=== PATIENT | female | born 1995 | race Caucasian/White ===

== ENCOUNTER 2017-03-23 18:04 | Emergency (ER) | payer SELFPAY ==
[~2017-03-23] VITALS: Ht 134.6 cm; Wt 65.0 kg
[~2017-03-23 18:04] MED LIST: ONDANSETRON HCL 4 MG/2 ML VIAL IV PUSH ONE
[2017-03-23 18:05] VITALS: BP 166/100; PULSE 118; RESP 20; TEMP 98.3; O2SAT 97
[2017-03-23 18:17] VITALS: BP 148/91; PULSE 105; RESP 18; O2SAT 99
--- NOTE | 2017-03-23 18:19 | PD ---
Physical Exam Date Seen by Provider: Mar 23, 2017 Time Seen by Provider: 18:17 Narrative 21 yo female here for possible food stuck on the throat. Feels like she cant swallow. Ate turkey. Not improving with water. Nothing helps. Some chest pain with cough. Vitals are stable in triage. Awaiting bed placement. Data Data Last Documented VS Vital Signs Date Time Temp Pulse Resp B/P Pulse Ox O2 Delivery O2 Flow Rate FiO2 03/23/17 18:05 98.3 118 20 166/100 97 Room Air [facility] Medical Record Reviewed: Yes Supervised Visit with JOAO: Genaro Stout Mar 23, 2017 18:19
[2017-03-23] MEDS ORDERED: GLUCAGON 1 MG/ML VIAL IV PUSH ONE (19:15)
[2017-03-23 19:37] LABS: AUTOMATED NEUTROPHIL # 6.9 TH/MM3 (1.8-7.7); BASOPHIL % 0.3 % (0.0-2.0); EOSINOPHIL # 0.3 TH/MM3 (0-0.4); HEMATOCRIT 45.3 % (35.0-46.0); HEMO FLAGS DIFF FINAL; LYMPH % 27.5 % (9.0-44.0); LYMPHOCYTE # 3.1 TH/MM3 (1.0-4.8); MEAN CELL VOLUME 87.2 FL (80.0-100.0); MEAN CORPUSCULAR HEMOGLOBIN 29.3 PG (27.0-34.0); MEAN CORPUSCULAR HGB CONC 33.6 % (32.0-36.0); MONO % 7.4 % (0.0-8.0); NEUT % 61.8 % (16.0-70.0); PLATELET COUNT 227 TH/MM3 (150-450); RED CELL DISTRIBUTION WIDTH 13.2 % (11.6-17.2); WHITE BLOOD COUNT 11.2 TH/MM3 (4.0-11.0)
[2017-03-23 20:01] LABS: BICARBONATE 29.2 MEQ/L (21.0-32.0); POTASSIUM 4.2 MEQ/L (3.5-5.1)
[2017-03-23] MEDS ORDERED: PROPOFOL 200 MG/20 ML AMP IV ONE (21:47)
[2017-03-23] MEDS ORDERED: GLUCAGON 1 MG/ML VIAL IV ONE (21:49)
--- NOTE | 2017-03-23 22:01 | MB ---
cc: SAMPSON ANGEL MDSHANNON (Correct spelling Alesia) DATE OF CONSULTATION 03/23/17 DATE OF 89 CHIEF COMPLAINT Esophageal foreign body HISTORY OF PRESENT ILLNESS This is a 21 year old woman who was eating beef jerky today and felt it stick in her throat. She cannot swallow. She is able to handle her secretions. She has had problems twice before in which food had to be extracted from her esophagus with endoscopy because of the food sticking in her esophagus. She was told that she has a narrow esophagus. She states that she does have some discomfort in her chest when she coughs. 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 Otherwise past medical history is negative. ALLERGIES POLLEN NONE TO ANY MEDICATIONS SOCIAL HISTORY Negative for smoking or drinking. FAMILY HISTORY Noncontributory. REVIEW OF SYSTEMS She does not report any headache, earache or fever. She does not report any dysuria. She does not report any rash or itching. Otherwise, complete review of systems is negative. PHYSICAL EXAMINATION GENERAL: She is a well appearing but unusually young appearing overweight young white female in no apparent distress. She is alert and oriented times three. She speaks clearly and is knowledgeable about her past medical history. HEENT: Moist mucous membranes. No jaundice. CHEST: Clear to auscultation. CARDIAC: Heart sounds are normal. ABDOMEN: Soft and nontender. There is no guarding or rebound. EXTREMITIES: Without cyanosis, clubbing or edema. NEUROLOGIC: Grossly normal. LAB AND X-RAY DATA None. IMPRESSION Probable esophageal foreign body with possible eosinophilic esophagitis. PLAN We will take her to the operating room to remove the esophageal foreign body. Sampson Angel MD [facility]/ /9:30 PM /9:52 PM
[2017-03-23 22:05] VITALS: TEMP 98.2
[2017-03-23 22:30] VITALS: BP 106/61; PULSE 95; RESP 16; O2SAT 100
[2017-03-23] MEDS ORDERED: DO NOT ADM ANY ANTICOAGULANT DRUGS PRN (22:45)
--- NOTE | 2017-04-06 15:21 | PD ---
HPI Chief Complaint: Foreign Body Time Seen by Provider: 19:12 Travel History International Travel<30 days: No Contact w/Intl Traveler<30days: No Traveled to known affect area: No History of Present Illness HPI This patient reports that she feels like something is stuck in her soft use. She has a history of multiple episodes of food getting stuck in her esophagus. She's had esophageal dilation in the past. Today she was eating some beef jerky and felt like it got stuck in her throat. Now she tries to swallow any solid or liquid she vomits it right back up. He was moderately severe. Duration 3 hours. No alleviating factors. PFSH Past Medical History Medical History: Denies Significant Hx Immunizations Current: Yes ?: Not Past Surgical History Abdominal Surgery: Yes (L KIDNEY REMOVED) Social History Alcohol Use: No Tobacco Use: No Substance Use: No Allergies-Medications (Allergen,Severity, Reaction): Coded Allergies: Red Dyes - Various (Verified Allergy, Unknown, 03/23/17) Review of Systems General / Constitutional: No: Fever Eyes: No: Visual changes HENT: No: Headaches Cardiovascular: No: Chest Pain or Discomfort Respiratory: No: Shortness of Breath Gastrointestinal: Positive: Dysphagia, No: Abdominal Pain Genitourinary: No: Dysuria Musculoskeletal: No: Pain Skin: No Rash Neurologic: No: Weakness Psychiatric: No: Depression Endocrine: No: Polydipsia Hematologic/Lymphatic: No: Easy Bruising Physical Exam Narrative GENERAL: Well-nourished, well-developed patient in no apparent distress. SKIN: Focused skin assessment reveals no rash and nodules. Skin is Warm and dry. HEAD: Atraumatic. Normocephalic. EYES: Pupils equal and round. No scleral icterus. No injection or drainage. ENT: No nasal bleeding or discharge. Mucous membranes pink and moist. NECK: Trachea midline. No JVD. CARDIOVASCULAR: Regular rate and rhythm. No murmur appreciated. RESPIRATORY: No accessory muscle use. Clear to auscultation. Breath sounds equal bilaterally. GASTROINTESTINAL: Abdomen soft, non-tender, nondistended. Hepatic and splenic margins not palpable. MUSCULOSKELETAL: No obvious deformities. No clubbing. No cyanosis. No edema. NEUROLOGICAL: Awake and alert. No obvious cranial nerve deficits. Motor grossly within normal limits. Normal speech. PSYCHIATRIC: Appropriate mood and affect; insight and judgment normal. Data Data Orders Iv Access Insert/Monitor (03/23/17 19:13) Complete Blood Count With Diff (03/23/17 19:13) Basic Metabolic Panel (Bmp) (03/23/17 19:13) Glucagon Inj (Glucagon Inj) (03/23/17 19:15) Panendo (03/23/17 ) Glucagon Inj (Glucagon Inj) (03/23/17 21:49) Propofol 200 Mg/20 Ml Inj (Diprivan 200 (03/23/17 21:47) Misc Nursing Information (03/23/17 22:45) Class V Pacu Ea 30 Min (03/23/17 ) General/Pacu (03/23/17 ) Post Anesthesia Oxygen (03/23/17 ) Secondary Rec Up To 2 Hrs (03/23/17 ) Ondansetron Inj (Zofran Inj) (03/23/17 12:00) MDM Medical Decision Making Medical Screen Exam Complete: Yes Emergency Medical Condition: Yes Medical Record Reviewed: Yes Differential Diagnosis Esophageal foreign body, esophageal stricture, pharyngitis Narrative Course I have reviewed the patient's electronic medical record. IV placed I gave her 1 mg IV glucagon Did not help anything CBC normal Metabolic profile normal I reviewed the case in detail with GI physician continuous improvement black belt Dr. Angel. He is taking the patient to the GI lab to do emergent endoscopy to remove foreign body from esophagus. I did give her a trial of liquid and she immediately vomited right back up Plan will be to discharge home from the GI lab Diagnosis Primary Impression: Esophageal foreign body Qualified Code: T18.108A - Esophageal foreign body, initial encounter Patient Instructions: Soft Diet (GEN) Disposition: DISCHARGE HOME Condition: Stable Austin An MD Apr 06, 2017 15:21
== END 2017-03-23 22:50 | disposition home or self-care (01) ==
LOC: NEPD 18:04
PROC: 0DB58ZX Excision of Esophagus, Via Natural or Artificial Opening Endoscopic, Diagnostic (ICD-10-PCS; 2017-03-23)
PROC: 0DC18ZZ Extirpation of Matter from Upper Esophagus, Via Natural or Artificial Opening Endoscopic (ICD-10-PCS; principal; 2017-03-23 21:30)
DX: T18.128A Food in esophagus causing other injury, initial encounter (principal); X58.XXXA Exposure to other specified factors, initial encounter
CPT/HCPCS: 00740; 43239; 80048; 85025; 88305; 96374; 99284; J1610; J2405